=== PATIENT | female | born 1975 | race African-American/Black ===

== ENCOUNTER → 2017-01-12 | Emergency (ER) | payer OTHER ==
[~2017-01-12] MED LIST: OSELTAMIVIR PHOSPHATE 75 MG CAPSULE ONE; OSELTAMIVIR PHOSPHATE 75 MG CAPSULE PO ONE
[2017-01-13 00:33] VITALS: BP 136/95; PULSE 87; TEMP 99.2; BMI 28.3
--- NOTE | 2017-01-13 01:26 | PDOC ---
History of Present Illness - General History Source: Patient <Daniel Agustin - Last Filed: 01/13/17 02:26> - General History Source: Patient Exam Limitations: No Limitations - History of Present Illness Initial Comments: 01/13/17 02:33 The patient is a 41 year old female, with a significant past medical history of asthma, who presents to the emergency department complaining of flu-like symptoms for approximately 1-2 days. The patient reports generalized malaise, subjective fever, joint and body aches. The patient's Tmax in the ED was 99.2F. The patient denies any chills, cough, rhinorrhea, or dizziness. The patient denies any changes in appetite, nausea, vomiting, diarrhea, or constipation. The patient denies any dysuria, hematuria, frequency, or urgency. The patient denies any recent travel or sick contacts. Allergies: Shellfish Past Surgical History: None reported. Social History: Non-smoker. Denies alcohol or drug use. <Stephane Arnold - Last Filed: 01/13/17 02:37> - General Chief Complaint: Respiratory Stated Complaint: WHEEZING Time Seen by Provider: 01/13/17 01:23 Past History - Past Medical History Asthma: Yes - Immunization History Immunization Up to Date: No - Psycho/Social/Smoking Cessation Hx Anxiety: No Suicidal Ideation: No Smoking History: Never smoked Have you smoked in the past 12 months: No Information on smoking cessation initiated: No Hx Alcohol Use: No Drug/Substance Use Hx: No Substance Use Type: None <Daniel Agustin - Last Filed: 01/13/17 02:26> <Stephane Arnold - Last Filed: 01/13/17 02:37> - Past Medical History Allergies/Adverse Reactions: Allergies Allergy/AdvReac Type Severity Reaction Status Date / Time shellfish derived Allergy Verified 01/13/17 00:51 Home Medications: Ambulatory Orders Albuterol Sulfate [Proventil HFA Inhaler -] 1 - 2 inh PO TID PRN 01/13/17 Fluticasone/Salmeterol [Advair Hfa 115-21 Mcg Inhaler] 1 inh PO BID PRN Ibuprofen 800 mg PO TID #30 tablet 01/13/17 Oseltamivir Phosphate [Tamiflu -] 75 mg PO BID #10 capsule 01/13/17 Review of Systems - Review of Systems Able to Perform ROS?: Yes Comments:: 01/13/17 02:35 CONSTITUTIONAL: Present: +generalized malaise, +fever Absent: no chills, no fatigue EYES: Absent: visual changes ENT: Absent: ear pain, no sore throat CARDIOVASCULAR: Absent: chest pain, no palpitations RESPIRATORY: Absent: cough, no SOB GI: Absent: abdominal pain, no nausea, no vomiting, no constipation, no diarrhea GENITOURINARY: Absent: dysuria, no frequency, no hematuria MUSKULOSKELETAL: Present: +myalgia, +body aches Absent: back pain, no arthralgia SKIN: Absent: rash NEURO: Absent: headache <Stephane Arnold - Last Filed: 01/13/17 02:37> *Physical Exam - Vital Signs Last Vital Signs Temp Pulse Resp BP Pulse Ox 99.2 F 87 18 136/95 97 01/13/17 00:22 01/13/17 00:22 01/13/17 00:22 01/13/17 00:22 01/13/17 00:22 <Daniel Agustin - Last Filed: 01/13/17 02:26> - Vital Signs Last Vital Signs Temp Pulse Resp BP Pulse Ox 99.2 F 87 18 136/95 97 01/13/17 00:22 01/13/17 00:22 01/13/17 00:22 01/13/17 00:22 01/13/17 00:22 - Physical Exam Comments: 01/13/17 02:35 GENERAL: Well-appearing, well-nourished. Mild distress. HEENT: Normocephalic, atraumatic. PERRL, EOM intact. CARDIOVASCULAR: Normal S1, S2. Regular rate and rhythm. PULMONARY: Clear to auscultation bilaterally. ABDOMEN: Soft, non-distended, non-tender. EXTREMITIES: Normal ROM in all four extremities. No gross deformities. SKIN: Warm, dry. No rash NEUROLOGICAL: No focal neurological deficits. <Stephane Arnold - Last Filed: 01/13/17 02:37> ED Treatment Course - ADDITIONAL ORDERS Additional order review: 01/13/17 01:45 Influenza Types A,B Antigen ([facility]GARD) - Final Nasopharyngeal Swab - Final <Stephane Arnold - Last Filed: 01/13/17 02:37> Medical Decision Making - Medical Decision Making 01/13/17 02:[address] staDr[address] Agustin: The scribe's documentation has been prepared under my direction and personally reviewed by me in its entirery. I confirm that the note above accurately reflects all work, treatment, procedures, and medical decision making performed by me Dr. Agusitn: The scribe's documentation has been prepared under my direction and personally reviewed by me in its entirery. I confirm that the note above accurately reflects all work, treatment, procedures, and medical decision making performed by me. <Daniel Agustin - Last Filed: 01/13/17 02:26> *DC/Admit/Observation/Transfer - Discharge Dispostion Admit: No <Daniel Agusitn - Last Filed: 01/13/17 02:26> - Attestations Scribe Attestion: 01/13/17 02:35 Documentation prepared by Stephane Arnold, acting as medical auditor for Daniel Agustin DO. <Stephane Arnold - Last Filed: 01/13/17 02:37> Diagnosis at time of Disposition: Influenza A - Discharge Dispostion Condition at time of disposition: Fair - Prescriptions Prescriptions: Ibuprofen 800 mg PO TID #30 tablet Oseltamivir Phosphate [Tamiflu -] 75 mg PO BID #10 capsule - Referrals Referrals: STAFF,NOT ON [Primary Care Provider] - Manuela Almanzar MD [Staff Physician] - - Patient Instructions Printed Discharge Instructions: DI for Influenza -- Adult - Post Discharge Activity Work/School Note: Back to Work
== END | disposition home or self-care (01) ==
LOC: JER 23:49
DX: J09.X2 Influenza due to identified novel influenza A virus with other respiratory manifestations (principal); J45.909 Unspecified asthma, uncomplicated
CPT/HCPCS: 87804; 99282-25